=== PATIENT | female | born 1990 | race Hispanic/Latino ===

== ENCOUNTER 2019-06-18 10:46 | Inpatient (IN) | payer BC ==
[~2019-06-18] VITALS: Ht 175.3 cm; Wt 85.3 kg
[2019-06-18 11:55] LABS: BASOPHILS % (AUTO) 0.6 % (0.0-5.0); EOSINOPHILS % (AUTO) 2.2 % (0.0-8.0); HEMATOCRIT 35.2 % (36-48); LYMPHOCYTES % (AUTO) 12.6 % (21.0-51.0); MEAN CORPUSCULAR HEMOGLOBIN 39.8 pg (27.0-33.0); MEAN CORPUSCULAR HGB CONC 34.7 g/dL (32.0-36.0); MEAN CORPUSCULAR VOLUME 114.9 fL (79-99); MONOCYTES % (AUTO) 8.7 % (3.0-13.0); NEUTROPHILS % (AUTO) 75.9 % (40.0-77.0); PLATELET COUNT (AUTO) 253 K/uL (130-400); RED BLOOD CELL COUNT(AUTO) 3.06 MIL/uL (4.00-5.50); RED CELL DISTRIBUTION WIDTH 19.1 % (11.0-15.5)
[2019-06-18 12:07] LABS: INR 1.01 (0.85-1.15); PROTHROMBIN TIME 10.6 SEC (9.6-11.6)
[2019-06-18 12:10] LABS: ALBUMIN 3.1 g/dL (3.5-5.0); CREATININE 0.8 mg/dL (0.5-1.5); TOTAL PROTEIN, SERUM 7.9 g/dL (6.0-8.3)
[2019-06-18 12:13] LABS: POTASSIUM 2.9 mmol/L (3.5-5.1)
[2019-06-18] MEDS ORDERED: ENOXAPARIN SODIUM 100 MG/1 ML SQ ONE (13:03)
[2019-06-18] MEDS ORDERED: POTASSIUM CHLORIDE 20 MEQ ERTAB PO ONE (13:04)
[2019-06-18] MEDS ORDERED: MAGNESIUM OXIDE 400 MG TABLET PO ONE (13:04)
[2019-06-18] MEDS ORDERED: POTASSIUM CHLORIDE 10% ELIXIR 20 MEQ/15 ML UDCUP PO PRN (15:45)
[2019-06-18] MEDS ORDERED: POTASSIUM CHLORIDE 20MEQ/100ML 100 ML IV PRN (15:45)
[2019-06-18] MEDS ORDERED: LIDOCAINE HCL-MPF 1% 2ML VIAL IV PRN (15:45)
[2019-06-18 16:25] VITALS: BP 134/96
--- NOTE | 2019-06-18 17:28 | NUR ---
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
[2019-06-18] MEDS ORDERED: ACETAMINOPHEN 325 MG TAB PO PRN (17:45)
[2019-06-18] MEDS ORDERED: MORPHINE SULFATE 2 MG/ML 1ML SYG ONE (17:45)
[2019-06-18] MEDS: MORPHINE SULFATE 2 MG/ML 1ML SYG IVP PRN ×2 (17:49→22:18)
[2019-06-18] MEDS ORDERED: ONDANSETRON HCL 4 MG/2 ML VIAL IVP PRN (18:00)
[2019-06-18] MEDS: POTASSIUM CHLORIDE 20 MEQ ERTAB PO PRN ×2 (19:29→22:12)
[2019-06-18 20:07] VITALS: BP 128/96
[2019-06-18] MEDS: FAMOTIDINE/PF 20 MG/2 ML VIAL IV SCH (20:26)
[2019-06-18] MEDS: APIXABAN 5 MG TABLET PO SCH (20:26)
[2019-06-18] MEDS ORDERED: ENOXAPARIN SODIUM 80 MG/0.8 ML SQ SCH (21:00)
[2019-06-18] MEDS: SODIUM CHLORIDE 0.9% 1000ML 1,000 ML IV SCH (21:17)
[2019-06-18 23:39] VITALS: BP 121/91
[2019-06-19] MEDS: MORPHINE SULFATE 2 MG/ML 1ML SYG IVP PRN ×5 (02:47→22:14)
[2019-06-19] MEDS: POTASSIUM CHLORIDE 20 MEQ ERTAB PO PRN (02:54)
[2019-06-19 03:50] VITALS: BP 116/67
[2019-06-19 05:16] LABS: BASOPHILS % (AUTO) 0.8 % (0.0-5.0); EOSINOPHILS % (AUTO) 6.2 % (0.0-8.0); HEMATOCRIT 29.5 % (36-48); MEAN CORPUSCULAR HEMOGLOBIN 40.5 pg (27.0-33.0); MEAN CORPUSCULAR HGB CONC 34.8 g/dL (32.0-36.0); MEAN CORPUSCULAR VOLUME 116.2 fL (79-99); MONOCYTES % (AUTO) 9.4 % (3.0-13.0); NEUTROPHILS % (AUTO) 61.6 % (40.0-77.0); NUCLEATED RED BLOOD CELLS 0.1 % (0.0-0.19); PLATELET COUNT (AUTO) 229 K/uL (130-400); RED BLOOD CELL COUNT(AUTO) 2.54 MIL/uL (4.00-5.50); RED CELL DISTRIBUTION WIDTH 19.3 % (11.0-15.5); WHITE BLOOD COUNT (AUTO) 7.3 K/uL (4.8-10.8)
[2019-06-19 05:34] LABS: ALBUMIN 2.3 g/dL (3.5-5.0); BILIRUBIN,TOTAL 1.3 mg/dL (0.2-1.0); CREATININE 0.7 mg/dL (0.5-1.5); POTASSIUM 4.1 mmol/L (3.5-5.1); TOTAL PROTEIN, SERUM 6.2 g/dL (6.0-8.3)
[2019-06-19] MEDS: MAGNESIUM 2GM PREMIX 50ML 50 ML IV PRN (06:17)
[2019-06-19 08:00] VITALS: BP 117/67
[2019-06-19] MEDS: FAMOTIDINE/PF 20 MG/2 ML VIAL IV SCH ×2 (10:07→21:17)
[2019-06-19] MEDS: APIXABAN 5 MG TABLET PO SCH ×2 (10:07→21:17)
[2019-06-19 11:54] VITALS: BP 120/79
[2019-06-19 16:00] VITALS: BP 119/75
--- NOTE | 2019-06-19 17:04 | NUR ---
D/C PLAN CM spoke to pt regarding d/c planning. Mother at bedside. Pt is ind. and denies having and DME. States she moved from [facility] recently. Mother can assist in care as needed. Plan to home. CM to f/u. Addendum: 06/19/19 at 1707 by JARED KOCH CM Amended: Links added.
[2019-06-19 19:35] VITALS: BP 117/80
--- NOTE | 2019-06-19 21:17 | NUR ---
MEDS SHIFT ASSESSMENT DONE, PLEASE REFER TO CPOE. PT COMPLAINTS OF PAINS TO LEFT LOWER EXTREMITY. OFFERED TO GIVE TYLENOL AT THIS TIME PT'S MORPHINE IS NOT YET DUE. PT DECLINED AND STATED SHE WILL WAIT FOR THE MORPHINE DOSE. ELEVATED SWOLLEN LEFT LEG WITH PILLOWS. KEPT BEDREST AT THIS TIME. DUE MEDS ADMINISTERED, TOLERATED WELL. WILL RE-ASSESS PT. Addendum: 06/19/19 at 2316 by JAIME GRACIA RN RN Amended: Links added.
[2019-06-19] MEDS: SODIUM CHLORIDE 0.9% 1000ML 1,000 ML IV SCH (21:26)
--- NOTE | 2019-06-19 22:13 | NUR ---
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 MORPHINE DOSE GIVEN FOR LEFT LEG PAINS. KEPT COMFORTABLE IN BED WITH LEFT LEG ELEVATED. WILL RE-ASSESS PT.
[2019-06-19 23:23] VITALS: BP 123/73
--- NOTE | 2019-06-20 01:47 | NUR ---
ROUNDS PT RESTING WELL, NO DISTRESS NOTED. KEPT UNDISTURBED FOR NOW. WILL MONITOR PT. FAMILY AT BEDSIDE.
[2019-06-20] MEDS: MORPHINE SULFATE 2 MG/ML 1ML SYG IVP PRN ×2 (02:46→08:50)
--- NOTE | 2019-06-20 02:46 | NUR ---
PAIN PT CALLED AND CLAIMS OF LEFT LEG PAINS. MEDICATED WITH MORPHINE IV. KEPT COMFORTABLE IN BED. CALL LIGHT WITHIN REACH. WILL RE-ASSESS PT.
[2019-06-20 03:45] VITALS: BP 125/80
[2019-06-20 05:21] LABS: BASOPHILS % (AUTO) 1.1 % (0.0-5.0); EOSINOPHILS % (AUTO) 7.5 % (0.0-8.0); HEMATOCRIT 29.2 % (36-48); LYMPHOCYTES % (AUTO) 20.1 % (21.0-51.0); MEAN CORPUSCULAR HEMOGLOBIN 40.3 pg (27.0-33.0); MEAN CORPUSCULAR HGB CONC 34.4 g/dL (32.0-36.0); MONOCYTES % (AUTO) 8.8 % (3.0-13.0); NEUTROPHILS % (AUTO) 62.5 % (40.0-77.0); NUCLEATED RED BLOOD CELLS 0.1 % (0.0-0.19); PLATELET COUNT (AUTO) 317 K/uL (130-400); RED CELL DISTRIBUTION WIDTH 18.6 % (11.0-15.5); WHITE BLOOD COUNT (AUTO) 7.5 K/uL (4.8-10.8)
--- NOTE | 2019-06-20 05:37 | NUR ---
ROUNDS PT FAIRLY ASLEEP WITH RESPIRATIONS EVEN AND UNLABORED. NO NOTED DISTRESS. KEPT UNDISTURBED FOR NOW. FOR MORE CARE.
[2019-06-20 06:09] LABS: ALBUMIN 2.4 g/dL (3.5-5.0); BILIRUBIN,TOTAL 0.9 mg/dL (0.2-1.0); CREATININE 0.7 mg/dL (0.5-1.5); MAGNESIUM 1.9 mg/dL (1.80-2.40); POTASSIUM 4.2 mmol/L (3.5-5.1); TOTAL PROTEIN, SERUM 6.6 g/dL (6.0-8.3)
[2019-06-20] MEDS: SODIUM CHLORIDE 0.9% 1000ML 1,000 ML IV SCH (06:38)
[2019-06-20] MEDS: MAGNESIUM 2GM PREMIX 50ML 50 ML IV PRN (06:39)
--- NOTE | 2019-06-20 07:30 | NUR ---
NOTE AAOX3. REPORTS PAIN TO LLE. SWELLING PRESENT. PATIENT REPORTS IT IS MORE SWOLLEN THAN ON ADMISSION AND SHE IS WORRIED BECAUSE MD HAS NOT EXPLAINED THIS. SHE HAS VQ SCAN TO RULE OUT ANY PE AND WAS NEGATIVE. SHE HAS BEEN ON ELIQUIS SINCE 06/18/19. Addendum: 06/20/19 at 1956 by JUSTICE CASTRO RN LEFT PEDAL AND DORSALIS PEDIS PULSES PRESENT. DISTAL LLE WARM TO TOUCH AND GOOD CAPILLARY REFILL. MOTHER AT HER SIDE.
[2019-06-20 07:40] VITALS: BP 116/73
[2019-06-20] MEDS: FAMOTIDINE/PF 20 MG/2 ML VIAL IV SCH (08:49)
[2019-06-20] MEDS: APIXABAN 5 MG TABLET PO SCH (08:50)
[2019-06-20] MEDS ORDERED: HYDROCODONE/ACETAMINOPHEN 5/325 MG TAB PO PRN (09:30)
[2019-06-20] MEDS ORDERED: TRAMADOL HCL 50 MG TABLET PO PRN (09:30)
[2019-06-20] MEDS ORDERED: FAMOTIDINE 20MG TAB 20 MG TAB PO SCH ×2 (09:30→21:00)
[2019-06-20 11:35] VITALS: BP 124/79
[2019-06-20 16:08] VITALS: BP 115/75
--- NOTE | 2019-06-20 16:23 | NUR ---
RD Notification Pt admitted for LLE DVT. Pt tolerating Regular Diet Order with no report of GI distress and PO intake at 100%. Pt admits to eating foods from outside that family brings. Recommend Heart Healthy Diet order. RD to update food preferences. Pt LBM 06/18/19. Pt monitored labs: Ca 8.2, AST 53, Alb 2.4. RD to continue to monitor. Please notify RD as additional nutrition concerns arise. Thank you. Addendum: 06/20/19 at [address] RD Amended: Links added.
[2019-06-20] MEDS ORDERED: APIX5TAB PO (17:11)
--- NOTE | 2019-06-20 18:30 | NUR ---
DISCHARGE DISCHARGE INSTRUCTIONS GIVEN AT THIS TIME. VERBALIZED UNDERSTANDING. REFER TO DC SUMMARY FOR DETAILS. SHE DID WELL WITH TRAMADOL PRN. WAS AT FIRST DOUBTFUL SHE WILL ACHIEVE PAIN CONTROL WITH PO MEDS SINCE SHE NOTICED HER LLE WAS EXTREMELY SWOLLEN. STABLE UPON LEAVING. SHE WILL ESTABLISH PRIMARY CARE DOCTOR AND WILL FOLLOW UP INSTRUCTED.
== END 2019-06-20 18:52 | disposition home or self-care (01) | DRG 300 ==
LOC: EDH 10:46 → EDHIP 15:25 → 4BH 16:24
PROVIDERS: ADMIT Internal Medicine; ATTEND Internal Medicine
DX: I82.412 Acute embolism and thrombosis of left femoral vein (principal); E87.1 Hypo-osmolality and hyponatremia; E44.1 Mild protein-calorie malnutrition; I82.812 Embolism and thrombosis of superficial veins of left lower extremity; I82.432 Acute embolism and thrombosis of left popliteal vein; E87.6 Hypokalemia; E83.42 Hypomagnesemia; F17.210 Nicotine dependence, cigarettes, uncomplicated; Z68.27 Body mass index [BMI] 27.0-27.9, adult; Z79.01 Long term (current) use of anticoagulants; Z86.718 Personal history of other venous thrombosis and embolism; Z88.8 Allergy status to other drugs, medicaments and biological substances
CPT/HCPCS: 36415; 78580; 80053; 83735; 84702; 85025; 85060; 85610; 85730; 93971; A9540; G0378; J1650; J2405; J3475; J3480; J3490; J7030